=== PATIENT | female | born 1950 | race Hispanic/Latino ===

== ENCOUNTER 2021-08-10 19:26 | Inpatient (IN) | payer MEDICARE ==
[~2021-08-10] VITALS: Ht 157.5 cm; Wt 67.9 kg
[~2021-08-10 19:26] MED LIST: ASPI-1114 PO; CARV25TA PO; CLOP75TA32 PO; FURO40TA7 PO; HUM10VIA SQ; LEVO150C4 PO; LOSA50TA64 PO; NITR100C PO; PANT40TA54 PO; PHEN-948 PO; RANO500T2 PO; SIMV-43 PO
[2021-08-10 20:23] LABS: APPEARANCE,URINE CLOUDY (CLEAR); BILIRUBIN,URINE NEGATIVE (NEGATIVE); COLOR,URINE YELLOW (YELLOW); GLUCOSE, URINE (UA) 250 mg/dL (NEGATIVE); KETONES,URINE NEGATIVE (NEGATIVE); LEUKOCYTE ESTERASE ,URINE LARGE (NEGATIVE); NITRATE,URINE POSITIVE (NEGATIVE); OCCULT BLOOD,URINE TRACE-INTACT (NEGATIVE); PH,URINE 5.5 (5.0-8.0); PROTEIN,URINE 30 mg/dL (NEGATIVE); UROBILINOGEN,URINE 0.2 mg/dL (0.2-1.0)
[2021-08-10 20:31] LABS: BACTERIA,URINE Moderate /HPF (None Seen); SQUAMOUS EPITHELIAL CELL,UR Few /HPF (0-2); WBC,URINE 26-50 /HPF (0-1)
[2021-08-10 20:44] LABS: ABG BASE EXCESS -3.2 mmol/L (-2.0-3.0); ABG HCO3 20.9 mmol/L (21.0-28.0); ABG OXYGEN SATURATION 90.1 % (95.0-99.0); ABG PCO2 35 mmHg (32-45)
[2021-08-10] MEDS ORDERED: ASPIRIN 325MG TAB PO ONE (21:00)
[2021-08-10] MEDS ORDERED: FUROSEMIDE 40MG VIAL IV ONE (21:00)
[2021-08-10 21:02] LABS: BASOPHILS % (AUTO) 0.8 % (0.0-5.0); EOSINOPHILS % (AUTO) 1.4 % (0.0-8.0); HEMATOCRIT 29.9 % (36-48); LYMPHOCYTES % (AUTO) 17.7 % (21.0-51.0); MEAN CORPUSCULAR HEMOGLOBIN 30.6 pg (27.0-33.0); MEAN CORPUSCULAR HGB CONC 32.4 g/dL (32.0-36.0); MEAN CORPUSCULAR VOLUME 94.3 fL (79-99); MONOCYTES % (AUTO) 7.5 % (3.0-13.0); NEUTROPHILS % (AUTO) 72.2 % (40.0-77.0); PLATELET COUNT (AUTO) 243 K/uL (130-400); RED BLOOD CELL COUNT(AUTO) 3.17 MIL/uL (4.00-5.50); RED CELL DISTRIBUTION WIDTH 14.4 % (11.0-15.5); WHITE BLOOD COUNT (AUTO) 7.6 K/uL (4.8-10.8)
[2021-08-10 21:19] LABS: POTASSIUM 4.7 mmol/L (3.5-5.1)
[2021-08-10 21:24] LABS: ALBUMIN 3.2 g/dL (3.5-5.0); BILIRUBIN,TOTAL 0.5 mg/dL (0.2-1.0); TOTAL PROTEIN, SERUM 7.8 g/dL (6.0-8.3)
[2021-08-10 21:34] LABS: B-TYPE NATRIURETIC PEPTIDE 2610 pg/mL (0-100)
[2021-08-10] MEDS ORDERED: CEFTRIAXONE 1G VIAL IVP ONE (22:00)
[2021-08-10] MEDS ORDERED: ACETAMINOPHEN 325 MG TAB PO PRN (22:00)
[2021-08-10] MEDS: CEFTRIAXONE 1G VIAL IV SCH (22:00)
[2021-08-10] MEDS ORDERED: ONDANSETRON 4MG INJ IV PRN (22:00)
[2021-08-10] MEDS: NITROGLYCERIN 1GM OINT 1 INCH/1GM TD SCH (22:35)
[2021-08-10] MEDS ORDERED: PANT40TA54 PO (22:54)
[2021-08-11 04:20] VITALS: BP 158/84
[2021-08-11 04:51] LABS: BASOPHILS % (AUTO) 0.7 % (0.0-5.0); EOSINOPHILS % (AUTO) 15.3 % (0.0-8.0); HEMATOCRIT 30.5 % (36-48); LYMPHOCYTES % (AUTO) 20.3 % (21.0-51.0); MEAN CORPUSCULAR HEMOGLOBIN 30.5 pg (27.0-33.0); MEAN CORPUSCULAR HGB CONC 32.1 g/dL (32.0-36.0); NEUTROPHILS % (AUTO) 57.4 % (40.0-77.0); PLATELET COUNT (AUTO) 254 K/uL (130-400); RED BLOOD CELL COUNT(AUTO) 3.21 MIL/uL (4.00-5.50); RED CELL DISTRIBUTION WIDTH 14.4 % (11.0-15.5); WHITE BLOOD COUNT (AUTO) 8.6 K/uL (4.8-10.8)
[2021-08-11 05:07] LABS: CREATININE 1.8 mg/dL (0.5-1.5); MAGNESIUM 1.8 mg/dL (1.80-2.40); PHOSPHORUS 4.2 mg/dL (2.5-4.9)
[2021-08-11] MEDS: INSULIN HUMULIN R 100 UNIT/ML 3ML SQ SCH ×4 (05:47→21:07)
[2021-08-11] MEDS: NITROGLYCERIN 1GM OINT 1 INCH/1GM TD SCH ×3 (05:47→21:07)
[2021-08-11] MEDS: LEVOTHYROXINE 150 MCG TABLET PO SCH (06:25)
[2021-08-11 07:35] VITALS: BP 138/75
[2021-08-11] MEDS: ASPIRIN 81MG CHEW TAB PO SCH (08:21)
[2021-08-11] MEDS: RANOLAZINE 500 MG TAB.SR.12H PO SCH ×2 (08:21→21:05)
[2021-08-11] MEDS: SIMVASTATIN 20 MG TABLET PO SCH (08:22)
[2021-08-11] MEDS: LOSARTAN 50 MG TABLET PO SCH (08:22)
[2021-08-11] MEDS: FAMOTIDINE 20MG TAB PO SCH (08:22)
[2021-08-11] MEDS: CLOPIDOGREL 75MG TAB PO SCH (08:22)
[2021-08-11] MEDS: HEPARIN 5,000 UNIT VIAL SQ SCH ×3 (08:37→21:06)
[2021-08-11 10:53] VITALS: BP 142/70
[2021-08-11] MEDS: FUROSEMIDE 20MG VIAL IVP SCH ×2 (13:44→21:06)
[2021-08-11 15:30] VITALS: BP 109/58
[2021-08-11] MEDS ORDERED: MAGNESIUM 2GM PREMIX 50ML 50 ML IV PRN (19:00)
[2021-08-11 20:03] VITALS: BP 131/61
[2021-08-11] MEDS ORDERED: CARVEDILOL 6.25 MG TABLET PO SCH (21:00)
[2021-08-11] MEDS: CEFTRIAXONE 1G VIAL IV SCH (21:05)
[2021-08-11 23:44] VITALS: BP 108/54
[2021-08-12 04:02] LABS: EOSINOPHILS % (AUTO) 19.2 % (0.0-8.0); HEMATOCRIT 26.7 % (36-48); LYMPHOCYTES % (AUTO) 24.4 % (21.0-51.0); MEAN CORPUSCULAR HEMOGLOBIN 30.4 pg (27.0-33.0); MEAN CORPUSCULAR HGB CONC 32.2 g/dL (32.0-36.0); MEAN CORPUSCULAR VOLUME 94.3 fL (79-99); MONOCYTES % (AUTO) 8.4 % (3.0-13.0); NEUTROPHILS % (AUTO) 46.8 % (40.0-77.0); PLATELET COUNT (AUTO) 226 K/uL (130-400); RED BLOOD CELL COUNT(AUTO) 2.83 MIL/uL (4.00-5.50); RED CELL DISTRIBUTION WIDTH 14.6 % (11.0-15.5); WHITE BLOOD COUNT (AUTO) 6.3 K/uL (4.8-10.8)
[2021-08-12 04:08] LABS: CREATININE 1.9 mg/dL (0.5-1.5); MAGNESIUM 2.1 mg/dL (1.80-2.40); POTASSIUM 4.7 mmol/L (3.5-5.1)
[2021-08-12 04:15] VITALS: BP 128/66
[2021-08-12] MEDS: NITROGLYCERIN 1GM OINT 1 INCH/1GM TD SCH ×3 (05:04→21:53)
[2021-08-12] MEDS: LEVOTHYROXINE 150 MCG TABLET PO SCH (06:37)
[2021-08-12] MEDS: INSULIN HUMULIN R 100 UNIT/ML 3ML SQ SCH ×6 (06:38→21:00)
[2021-08-12] MEDS ORDERED: FUROSEMIDE 20MG VIAL ONE (07:13)
[2021-08-12] MEDS ORDERED: METOLAZONE 2.5 MG TABLET ONE (07:13)
[2021-08-12] MEDS ORDERED: METOLAZONE 2.5 MG TABLET PO SCH ×2 (07:30→08:30)
[2021-08-12 07:52] VITALS: BP 137/67
[2021-08-12] MEDS ORDERED: FUROSEMIDE 40MG VIAL IV ONE (08:30)
[2021-08-12] MEDS: FUROSEMIDE 40 MG TABLET PO SCH (09:00)
[2021-08-12] MEDS: RANOLAZINE 500 MG TAB.SR.12H PO SCH ×2 (09:45→21:50)
[2021-08-12] MEDS: CLOPIDOGREL 75MG TAB PO SCH (09:45)
[2021-08-12] MEDS: CARVEDILOL 12.5 MG TABLET PO SCH ×2 (09:46→21:50)
[2021-08-12] MEDS: FAMOTIDINE 20MG TAB PO SCH (09:46)
[2021-08-12] MEDS: SIMVASTATIN 20 MG TABLET PO SCH (09:47)
[2021-08-12] MEDS: LOSARTAN 50 MG TABLET PO SCH (09:47)
[2021-08-12] MEDS: ASPIRIN 81MG CHEW TAB PO SCH (09:47)
[2021-08-12] MEDS: HEPARIN 5,000 UNIT VIAL SQ SCH ×3 (09:47→21:52)
[2021-08-12 10:44] VITALS: BP 144/65
[2021-08-12 15:52] VITALS: BP 120/62
[2021-08-12 19:00] VITALS: BP 116/58
[2021-08-12 20:35] LABS: APPEARANCE,URINE Cloudy (CLEAR); BILIRUBIN,URINE Negative (NEGATIVE); COLOR,URINE Yellow (YELLOW); GLUCOSE, URINE (UA) Negative (NEGATIVE); KETONES,URINE Negative (NEGATIVE); LEUKOCYTE ESTERASE ,URINE Trace (NEGATIVE); NITRATE,URINE Negative (NEGATIVE); OCCULT BLOOD,URINE Negative (NEGATIVE); PROTEIN,URINE POS 2+ mg/dL (NEGATIVE)
[2021-08-12 20:52] LABS: BACTERIA,URINE Few /HPF (None Seen); MUCUS,URINE Few LPF (None Seen); RBC,URINE 0-1 /HPF (0-1); SQUAMOUS EPITHELIAL CELL,UR Moderate /HPF (0-2)
[2021-08-12] MEDS ORDERED: INSULIN GLARGINE 100 UNITS/ML 10 ML VIAL SQ SCH (21:00)
[2021-08-12] MEDS: CEFTRIAXONE 1G VIAL IV SCH (21:53)
[2021-08-13] VITALS: BP 116/52
[2021-08-13 04:00] VITALS: BP 130/63
[2021-08-13 04:26] LABS: HEMATOCRIT 26.9 % (36-48); MEAN CORPUSCULAR HEMOGLOBIN 30.4 pg (27.0-33.0); MEAN CORPUSCULAR HGB CONC 32.7 g/dL (32.0-36.0); MEAN CORPUSCULAR VOLUME 93.1 fL (79-99); PLATELET COUNT (AUTO) 223 K/uL (130-400); RED BLOOD CELL COUNT(AUTO) 2.89 MIL/uL (4.00-5.50); RED CELL DISTRIBUTION WIDTH 14.2 % (11.0-15.5); WHITE BLOOD COUNT (AUTO) 6.4 K/uL (4.8-10.8)
[2021-08-13 04:55] LABS: % IRON SATURATION 11.8 % (22-44)
[2021-08-13 05:09] LABS: ALBUMIN 2.7 g/dL (3.5-5.0); BILIRUBIN,TOTAL 0.4 mg/dL (0.2-1.0); MAGNESIUM 1.9 mg/dL (1.80-2.40); PHOSPHORUS 4.8 mg/dL (2.5-4.9); POTASSIUM 4.5 mmol/L (3.5-5.1); THYROID STIMULATING HORMONE 0.51 uIU/mL (0.36-3.74); TOTAL PROTEIN, SERUM 6.9 g/dL (6.0-8.3); URIC ACID 13.5 mg/dL (2.6-7.2)
[2021-08-13 05:33] LABS: EOSINOPHILS % (MANUAL) 2 % (1-6); LYMPHOCYTES % (MANUAL) 34 % (22-44); MAN.DIFF COMMENT-IMPRESSION MANUAL DIFFERENTIAL; MONOCYTES % (MANUAL) 6 % (2-9); SEGMENTED NEUTROPHILS % 58 % (40-70)
[2021-08-13] MEDS: NITROGLYCERIN 1GM OINT 1 INCH/1GM TD SCH ×2 (06:11→14:00)
[2021-08-13] MEDS: LEVOTHYROXINE 150 MCG TABLET PO SCH (06:11)
[2021-08-13] MEDS: INSULIN HUMULIN R 100 UNIT/ML 3ML SQ SCH ×4 (06:14→11:53)
[2021-08-13 07:49] VITALS: BP 132/73
[2021-08-13] MEDS ORDERED: Vitamin B Complex/Vit C/Folic Acid PO SCH (09:00)
[2021-08-13] MEDS ORDERED: IRON SUCROSE COMPLEX 100 MG in 0.9%NACL 50ML 50 ML IV SCH (10:00)
[2021-08-13] MEDS ORDERED: COMPOUND IV MISC 1 EACH IVSOLN MISC PRN (10:00)
[2021-08-13] MEDS: SIMVASTATIN 20 MG TABLET PO SCH (10:10)
[2021-08-13] MEDS: CLOPIDOGREL 75MG TAB PO SCH (10:11)
[2021-08-13] MEDS: RANOLAZINE 500 MG TAB.SR.12H PO SCH (10:11)
[2021-08-13] MEDS: LOSARTAN 50 MG TABLET PO SCH (10:11)
[2021-08-13] MEDS: ASPIRIN 81MG CHEW TAB PO SCH (10:11)
[2021-08-13] MEDS: FAMOTIDINE 20MG TAB PO SCH (10:11)
[2021-08-13] MEDS: FUROSEMIDE 40 MG TABLET PO SCH (10:11)
[2021-08-13] MEDS: CARVEDILOL 12.5 MG TABLET PO SCH (10:12)
[2021-08-13] MEDS: HEPARIN 5,000 UNIT VIAL SQ SCH ×2 (10:13→14:46)
[2021-08-13 11:01] VITALS: BP 140/93
[2021-08-13] MEDS ORDERED: CARV12.580 PO (12:48)
[2021-08-13] MEDS ORDERED: CEFU500T67 PO (12:48)
[2021-08-13] MEDS ORDERED: METO2.5T2 PO (12:48)
[2021-08-13 15:45] VITALS: BP 146/73
[2021-08-13] MEDS ORDERED: 0.9%NACL 1000ML 2,000 ML IV ONE (23:49)
== END 2021-08-13 17:04 | disposition home or self-care (01) | DRG 280 ==
LOC: EDH 19:26 → EDHIP 22:00 → 4CH 08-11 03:59
PROVIDERS: ADMIT Internal Medicine; ATTEND Internal Medicine
PROC: 4B02XSZ Measurement of Cardiac Pacemaker, External Approach (ICD-10-PCS; principal; 2021-08-13)
DX: I13.0 Hypertensive heart and chronic kidney disease with heart failure and stage 1 through stage 4 chronic kidney disease, or unspecified chronic kidney disease (principal); I50.43 Acute on chronic combined systolic (congestive) and diastolic (congestive) heart failure; I21.A1 Myocardial infarction type 2; N39.0 Urinary tract infection, site not specified; N17.9 Acute kidney failure, unspecified; E46 Unspecified protein-calorie malnutrition; E78.5 Hyperlipidemia, unspecified; E11.22 Type 2 diabetes mellitus with diabetic chronic kidney disease; I25.5 Ischemic cardiomyopathy; I27.20 Pulmonary hypertension, unspecified; Z20.822 Contact with and (suspected) exposure to COVID-19; I25.10 Atherosclerotic heart disease of native coronary artery without angina pectoris; E11.51 Type 2 diabetes mellitus with diabetic peripheral angiopathy without gangrene; N18.30 Chronic kidney disease, stage 3 unspecified; E87.5 Hyperkalemia; E03.9 Hypothyroidism, unspecified; Z60.2 Problems related to living alone; E78.00 Pure hypercholesterolemia, unspecified; D63.8 Anemia in other chronic diseases classified elsewhere; E66.9 Obesity, unspecified; Z68.27 Body mass index [BMI] 27.0-27.9, adult; Z79.4 Long term (current) use of insulin; Z79.890 Hormone replacement therapy; Z79.899 Other long term (current) drug therapy; Z95.0 Presence of cardiac pacemaker; Z87.891 Personal history of nicotine dependence; Z90.710 Acquired absence of both cervix and uterus; Z90.721 Acquired absence of ovaries, unilateral; Z86.73 Personal history of transient ischemic attack (TIA), and cerebral infarction without residual deficits
CPT/HCPCS: 36415; 36600; 71045; 76770; 80048; 80053; 81001; 82010; 82728; 82803; 82948; 83540; 83550; 83605; 83690; 83735; 83880; 84100; 84443; 84484; 84550; 85025; 85045; 87040; 87077; 87088; 87186; 87635; 87804; 93005; C9803; G0378; J0696; J1644; J1756; J1815; J1940; J2405; J3475; J7030